=== PATIENT | male | born 1935 | race Caucasian/White ===

== ENCOUNTER 2018-04-14 16:08 | Observation (INO) ==
[2018-04-14] MEDS ORDERED: Isovue-370 500 ML INFUS..BTL IV ONE (17:14)
--- NOTE | 2018-04-14 17:19 | Emergency Department Note ---
Disposition Clinical Impression: Deep vein thrombosis of lower extremity Referrals: Barrington Anne MD [Primary Care Provider] - Forms: ED Satisfaction Letter General Adult HPI - General Chief complaint: ED Extremity Problem,Nontraumatic Stated complaint: Possible right leg DVT Source: patient Limitations: no limitations - History of Present Illness HPI Narrative: This patient was sent in today by his primary physician Dr. Anne for a DVT study of the right leg which came back positive per the radiologist with a acute thrombus seen in the right posterior tibial. It sounds like this was ordered because the doctor had noticed swelling. The patient states that his leg was not really bothering him. He does mention that he has been getting occasionally short of breath. He does not have any chest pain has not had any recent travel. Pain Scale: 2 - Related Data Allergies Allergy/AdvReac Type Severity Reaction Status Date / Time No Known Allergies Allergy Verified 04/14/18 16:09 All systems ED: reviewed and negative except as stated. Constitutional: Denies: fever Cardiovascular: Denies: chest pain Respiratory: Reports: dyspnea Gastrointestinal: Denies: abdominal pain, vomiting Past Medical History - Past Medical History Attestation: Yes The following information was validated with the patient. Medical history: Reports: GERD, hypertension Psychiatric history: Reports: no psych history - Social History Smoking Status: Former smoker Smokeless Tobacco Status: No Alcohol use: Reports: rarely Drug use: Reports: none Physical Exam - General Limitations: no limitations General appearance: alert, in no apparent distress - Head Head exam: atraumatic - Eye Eye exam: Present: PERRL - ENT ENT exam: normal oropharynx - Respiratory Respiratory exam: Present: normal lung sounds bilaterally. Absent: wheezes - Cardiovascular Cardiovascular exam: Present: regular rate - Abdominal Exam Abdominal exam: Present: Non-Tender - Extremities Exam Extremities exam: Present: pedal edema, other (+2 pitting edema bilaterally. 2/ 4 DP and ) - Neurological Exam Neurological exam: Present: alert, oriented X3 - Skin Skin exam: Present: warm, dry Course Course Narrative: This patient was sent in for what was found to be a DVT in his right leg. He did mention some occasional shortness of breath, and we have ordered a CTA of the chest to rule out pulmonary embolism. That CT is still pending at this time. The case will be checked out to the night staff. (Dr Gillespie) Vital Signs Temperature 97.5 F L 04/14/18 16:09 Pulse Rate 59 04/14/18 16:09 Respiratory Rate 18 04/14/18 16:09 Blood Pressure 182/86 04/14/18 16:09 O2 Sat by Pulse Oximetry 97 04/14/18 16:09 Temperature 97.5 F L 04/14/18 16:12 Pulse Rate 59 04/14/18 16:12 Respiratory Rate 18 04/14/18 16:12 Blood Pressure 182/86 04/14/18 16:12 O2 Sat by Pulse Oximetry 97 04/14/18 16:12 Oxygen Delivery Oxygen Delivery Room Air Medical Decision Making - Medical Records Medical records reviewed: Yes I reviewed the patient's medical records. - Lab Data Lab results reviewed: Yes I reviewed the patient's lab results. Result diagrams: 04/14/18 17:29 04/14/18 17:29 Lab Results 04/14/18 04/14/18 Range/Units 17:29 17:29 WBC 5.9 (4.3-11.1) K/mcL RBC 4.11 L (4.19-5.50) M/mcL Hgb 13.6 (12.9-16.9) g/dL Hct 39.7 (37.5-50.1) % MCV 96.6 (83.0-100.0) fL MCH 33.1 (28.0-33.3) pg MCHC 34.3 (31.6-35.5) g/dL RDW 12.7 (11.5-14.5) % Plt Count 165 (140-400) K/mcL MPV 9.8 (9.4-12.4) fL Sodium 140 (136-145) mEq/L Potassium 4.1 (3.5-5.1) mEq/L Chloride 107 (98-107) mEq/L Carbon Dioxide 28 (23-29) mEq/L BUN 11 (8-23) mg/dL Creatinine 0.98 (0.70-1.30) mg/dL Est GFR ( Amer) > 60 (> 60) Est GFR (Non-Af Amer) > 60 (> 60) BUN/Creatinine Ratio 11 (6-26) Glucose 117 H (70-105) mg/dL Calculated Osmolality 290 (280-300) Calcium 9.4 (8.6-10.3) mg/dL - Radiology Data Radiology results reviewed: Yes I reviewed the patient's radiology results. - EKG Data EKG #1 EKG attestation: Yes I reviewed and interpreted this EKG. EKG results narrative: EKG interpreted by me showing sinus rhythm at a rate of 64 with PVCs noted. QRS of 85, QTC of 392, [place] -2.
[2018-04-14 17:47] LABS: Hematocrit 39.7 % (37.5-50.1); Hemoglobin 13.6 g/dL (12.9-16.9); Mean Corpuscular HGB Conc 34.3 g/dL (31.6-35.5); Mean Corpuscular Hemoglobin 33.1 pg (28.0-33.3); Mean Corpuscular Volume 96.6 fL (83.0-100.0); Mean Platelet Volume 9.8 fL (9.4-12.4); Platelet Count 165 K/mcL (140-400); Red Blood Count 4.11 M/mcL (4.19-5.50); Red Cell Distribution Width 12.7 % (11.5-14.5)
[2018-04-14 18:06] LABS: BUN/Creatinine Ratio 11 (6-26); Blood Urea Nitrogen 11 mg/dL (8-23); Calcium 9.4 mg/dL (8.6-10.3); Carbon Dioxide 28 mEq/L (23-29); Chloride 107 mEq/L (98-107); Glucose 117 mg/dL (70-105); Osmolality,Calculated 290 (280-300); Potassium 4.1 mEq/L (3.5-5.1); Sodium 140 mEq/L (136-145); eGFR For African Americans > 60 (> 60); eGFR For Non-African Americans > 60 (> 60)
[2018-04-14] MEDS ORDERED: *HR* Enoxaparin 100 MG/ML SYRINGE SQ STA (21:22)
[2018-04-15] MEDS ORDERED: Acetaminophen 325 MG TABLET PO PRN (00:32)
[2018-04-15] MEDS ORDERED: Naloxone 0.4 MG/ML INJ IVP PRN (00:32)
--- NOTE | 2018-04-15 00:42 | Internal Med History&Physical ---
Date of Encounter: 04/15/18 Time of Encounter: 00:04 Internal Medicine - H&P: HPI Admitted From: Home Plans for Post Hospital Care: Home History of present illness: Mr. Pratt is a 83 year old male Patient presented to his primary care physician for routine exam, which was nearly all within normal limits however his doctor noted right foot swelling. He suspected possible DVT and sent the patient for ultrasound. Ultrasound confirmed a right posttibial deep vein thrombosis. He was instructed to go to the emergency room for further management. Upon arrival to the ER chest CT showed no pulmonary embolism, no acute pulmonary abnormalities but atherosclerotic disease was noted. Patient's labs were within normal limits, and vitals showed elevated blood pressure for which patient has history of hypertension. A dose of Lovenox was given, and a discussion was had with the patient regarding further management. After this discussion patient decided he would like Coumadin rather than xarelto. He is to be admitted for bridging with Coumadin and INR monitoring. Patient denies other complaints including nausea, vomiting, chest pain, shortness of breath, abdominal pain, left leg pain and headache. Past Med Surg Social Fam HX - Past Medical History Medical history: GERD, hypertension Psychiatric history: no psych history - Social History Smoking Status: Former smoker Smokeless Tobacco Status: No Alcohol use: rarely Drug use: none Internal Medicine - H&P: Meds Finasteride [Proscar] 5 mg PO DAILY 04/14/18 [History] Metoprolol [Lopressor] 50 mg PO BID 04/14/18 [History] Terazosin HCl 10 mg PO DAILY 04/14/18 [History] raNITIdine HCl [Zantac] 150 mg PO BID 04/14/18 [History] 3 Allergy/AdvReac Type Severity Reaction Status Date / Time No Known Allergies Allergy Verified 04/14/18 21:33 All Systems PM: A 10-system review of systems was performed and is negative for pertinent findings except as documented above in the HPI. - Constitutional Vitals: Temp Pulse Resp BP Pulse Ox 97.7 F 78 16 164/97 94 04/14/18 22:54 04/14/18 22:54 04/14/18 22:54 04/14/18 22:54 04/14/18 22:54 General appearance: Present: A&O X 3, pleasant, no acute distress - Head Head exam: Present: normal inspection - Eye Eye exam: Present: EOMI, normal appearance - Respiratory Respiratory exam: Present: CTAB. Absent: respiratory distress, wheezes - Cardiovascular Cardiovascular exam: Present: RRR. Absent: clicks, diastolic murmur, systolic murmur - GI/Abdominal GI/Abdominal exam: Present: normal bowel sounds, soft. Absent: tenderness - Extremities Exam Extremities exam: Present: full ROM, warm, radial pulses palpable and symmetrical. Absent: tenderness Additional comments: Patient did not have tenderness in either lower extremity, Homans sign also negative bilaterally. Mild swelling in the right foot no pitting edema noted. - Neurological Exam Neurological exam: Present: oriented X3, no focal deficits. Absent: motor sensory deficit, facial droop, speech deficit - Skin Skin exam: Present: normal color, warm. Absent: rash Internal Med - H&P Results - Labs CBC & Chem 7: 04/14/18 17:29 04/14/18 17:29 - Assessment and plan (1) Deep vein thrombosis of lower extremity Current Visit: Yes Status: Acute Assessment and plan: Patient presented to the ER after ultrasound confirmed right deep vein thrombosis. Patient has never had one in the past. Patient decided to start Coumadin, after a long discussion about his alternatives. He states that his girlfriend's family has long history with multiple medical disorders, and one of her relatives was on Xarelto and . He likes Coumadin because it can be reversed, and it can be monitored closely. On exam patient has no tenderness of the right lower extremity, mild swelling in the right foot. Homans sign negative. Lovenox loading dose given in the emergency room Start patient on Coumadin, pharmacy to dose. Monitor INR daily. Qualifiers: Affected thrombotic vein of extremity: tibial Laterality: right Qualified Code(s): I82.441 - Acute embolism and thrombosis of right tibial vein (2) History of diabetes mellitus Current Visit: Yes Status: Acute Assessment and plan: Patient states he has a history of diabetes, and was on medication for in the past. He no longer takes his medicine but does try to watch his diet. Continue to monitor glucose with meals and at night. Diabetic diet while in the hospital. (3) Hypertension Current Visit: Yes Status: Acute Assessment and plan: Patient's blood pressure was elevated in the emergency room, patient takes metoprolol 50 milligrams twice a day. Continue home meds Continue to monitor When necessary labetalol if uncontrolled on patient's home medicine. Qualifiers: Hypertension type: essential hypertension Qualified Code(s): I10 - Essential (primary) hypertension (4) BPH (benign prostatic hyperplasia) Current Visit: Yes Status: Acute Assessment and plan: Chronic, patient takes finasteride and terazosin. Continue home meds. Qualifiers: Qualified Code(s): N40.0 - Benign prostatic hyperplasia without lower urinary tract symptoms - Time Spent With Patient Total time spent is greater than 50% in coordination of care (as documented) at patient's floor/unit and/or counseling patient: Greater than 35 minutes
[2018-04-15] MEDS ORDERED: Warfarin perPT PO PRN (01:07)
[2018-04-15] MEDS ORDERED: *HR* Warfarin 5 MG TABLET PO STA (01:11)
[2018-04-15 02:02] LABS: Hematocrit 41.3 % (37.5-50.1); Hemoglobin 13.9 g/dL (12.9-16.9); Mean Corpuscular HGB Conc 33.7 g/dL (31.6-35.5); Mean Corpuscular Hemoglobin 32.8 pg (28.0-33.3); Mean Corpuscular Volume 97.4 fL (83.0-100.0); Platelet Count 159 K/mcL (140-400); Red Blood Count 4.24 M/mcL (4.19-5.50); Red Cell Distribution Width 12.7 % (11.5-14.5)
[2018-04-15 02:19] LABS: BUN/Creatinine Ratio 11 (6-26); Blood Urea Nitrogen 12 mg/dL (8-23); Calcium 9.3 mg/dL (8.6-10.3); Carbon Dioxide 29 mEq/L (23-29); Chloride 104 mEq/L (98-107); Glucose 227 mg/dL (70-105); Osmolality,Calculated 293 (280-300); Potassium 3.9 mEq/L (3.5-5.1); Sodium 138 mEq/L (136-145); eGFR For African Americans > 60 (> 60); eGFR For Non-African Americans > 60 (> 60)
[2018-04-15 02:22] LABS: INR 1.2; Prothrombin Time 13.5 Seconds (9.4-12.1)
--- NOTE | 2018-04-15 05:04 | Emergency Department Note ---
Disposition Clinical Impression: Deep vein thrombosis of lower extremity Qualifiers: Affected thrombotic vein of extremity: tibial Laterality: right Qualified Code( s): I82.441 - Disposition: Admitted As Inpatient General Adult [facility] - General Chief complaint: ED Extremity Problem,Nontraumatic Stated complaint: Possible right leg DVT Time Seen by Provider: 04/14/18 19:16 Source: patient Limitations: no limitations Nursing Notes Reviewed: Yes Vital Signs Reviewed: Yes - History of Present Illness Pain Scale: 0 - Related Data Home Medications Medication Instructions Recorded Confirmed Finasteride [Proscar] 5 mg PO DAILY 04/14/18 04/14/18 Metoprolol [Lopressor] 50 mg PO BID 04/14/18 04/14/18 Terazosin HCl 10 mg PO DAILY 04/14/18 04/14/18 raNITIdine HCl [Zantac] 150 mg PO BID 04/14/18 04/14/18 Allergies Allergy/AdvReac Type Severity Reaction Status Date / Time No Known Allergies Allergy Verified 04/14/18 21:33 Constitutional: Denies: fever Cardiovascular: Denies: chest pain Respiratory: Reports: dyspnea Gastrointestinal: Denies: abdominal pain, vomiting Past Medical History - Past Medical History Medical history: Reports: GERD, hypertension Psychiatric history: Reports: no psych history - Social History Smoking Status: Former smoker Smokeless Tobacco Status: No Alcohol use: Reports: rarely Drug use: Reports: none Physical Exam - General Limitations: no limitations General appearance: alert, in no apparent distress Course Vital Signs Temperature 97.5 F L 04/14/18 16:09 Pulse Rate 59 04/14/18 16:09 Respiratory Rate 18 04/14/18 16:09 Blood Pressure 182/86 04/14/18 16:09 O2 Sat by Pulse Oximetry 97 04/14/18 16:09 Temperature 97.7 F 04/15/18 02:35 Pulse Rate 81 04/15/18 02:35 Respiratory Rate 16 04/15/18 02:35 Blood Pressure 143/82 04/15/18 02:35 O2 Sat by Pulse Oximetry 95 04/15/18 02:35 Oxygen Delivery Oxygen Delivery Room Air Medical Decision Making - Lab Data Result diagrams: 04/15/18 01:49 04/15/18 01:49 Lab Results 04/14/18 04/14/18 Range/Units 17:29 17:29 WBC 5.9 (4.3-11.1) K/mcL RBC 4.11 L (4.19-5.50) M/mcL Hgb 13.6 (12.9-16.9) g/dL Hct 39.7 (37.5-50.1) % MCV 96.6 (83.0-100.0) fL MCH 33.1 (28.0-33.3) pg MCHC 34.3 (31.6-35.5) g/dL RDW 12.7 (11.5-14.5) % Plt Count 165 (140-400) K/mcL MPV 9.8 (9.4-12.4) fL Sodium 140 (136-145) mEq/L Potassium 4.1 (3.5-5.1) mEq/L Chloride 107 (98-107) mEq/L Carbon Dioxide 28 (23-29) mEq/L BUN 11 (8-23) mg/dL Creatinine 0.98 (0.70-1.30) mg/dL Est GFR ( Amer) > 60 (> 60) Est GFR (Non-Af Amer) > 60 (> 60) BUN/Creatinine Ratio 11 (6-26) Glucose 117 H (70-105) mg/dL Calculated Osmolality 290 (280-300) Calcium 9.4 (8.6-10.3) mg/dL Attestation Statement - Attestation Attestation: Findings consistent with acute DVT. Attempted discharge with the relative however patient was not amenable to this form of any coagulation after discussion of risks versus benefits. Patient will be admitted for bridging of Lovenox to Coumadin.
[2018-04-15] MEDS ORDERED: *HR* Enoxaparin 100 MG/ML SYRINGE SQ SCH (08:47)
[2018-04-15] MEDS ORDERED: Famotidine 20 MG TABLET PO SCH (09:00)
[2018-04-15] MEDS ORDERED: Finasteride 5 MG TABLET PO SCH ×2 (09:00→21:00)
[2018-04-15 11:32] VITALS: BP 163/89
--- NOTE | 2018-04-15 12:23 | Electrocardiograph Report ---
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
--- NOTE | 2018-04-15 13:25 | Discharge Summary ---
- NOTES TO OUTPATIENT PROVIDER Notes to Outpatient Provider: Recommend follow-up within one week Date of Encounter: 04/15/18 Time of Encounter: 13:23 - Discharge Diagnosis (1) Deep vein thrombosis of lower extremity Priority: Primary Status: Acute Qualifiers: Affected thrombotic vein of extremity: tibial Laterality: right Qualified Code(s): I82.441 - Acute embolism and thrombosis of right tibial vein (2) BPH (benign prostatic hyperplasia) Priority: Primary Status: Acute Qualifiers: Lower urinary tract symptom presence: symptoms absent Qualified Code(s): N40.0 - Benign prostatic hyperplasia without lower urinary tract symptoms (3) History of diabetes mellitus Priority: Primary Status: Acute (4) Hypertension Priority: Primary Status: Acute Qualifiers: Hypertension type: essential hypertension Qualified Code(s): I10 - Essential (primary) hypertension Hospital course: Mr. Pratt is a 83 year old male with PMH BPH, hypertension and GERD presented to [facility] on 04/14/2018 from his PCPs office with an acute right lower extremity DVT. He was placed in observation status for further workup and treatment. Bilateral venous Doppler from PCP office showed acute thrombosis to right posterior tibial vein, normal left lower extremity Valentino. He underwent a CTA that was negative for pulmonary embolism. He does have history of prostate cancer and with his advanced age DVT appears to be provoked. Discussed anticoagulation options with him at length and patient and family both decided on warfarin with Lovenox bridge. Patient's said she has administered a cutaneous injections before and she she will be the one to administer Lovenox to patient at home. He was discharged home on Coumadin 3 mg daily with follow-up in 2 days at the Coumadin clinic. Educated at length regarding side effects of Coumadin; patient and both verbalize understanding that he will be at a higher bleeding risk. Discharge discussed with: patient (Seen and examined at bedside. Patient is new to me, information obtained from chart review and patient report. Says he feels back to baseline and wanted to go home today. Discussed anticoagulation with him and at length and both prefer to go with Coumadin due to option and reversal agent with vitamin K. will be administering Lovenox injections at home until INR is between 2-3. He will follow-up with the Coumadin clinic in 2 days.) - Time Spent with Patient Total time spent providing and/or coordinating discharge services: - Discharge Medications Prescriptions: Enoxaparin [Lovenox] 90 mg SQ Q12HR #28 syringe Warfarin [Coumadin] 3 mg PO 1800 #3 tablet Home Medications: Finasteride [Proscar] 5 mg PO DAILY 04/14/18 [History] Metoprolol [Lopressor] 50 mg PO BID 04/14/18 [History] Terazosin HCl 10 mg PO DAILY 04/14/18 [History] raNITIdine HCl [Zantac] 150 mg PO BID 04/14/18 [History] Enoxaparin [Lovenox] 90 mg SQ Q12HR #28 syringe 04/15/18 [Rx] Warfarin [Coumadin] 3 mg PO 1800 #3 tablet 04/15/18 [Rx] Allergies/Adverse Reactions: 3 Allergy/AdvReac Type Severity Reaction Status Date / Time No Known Allergies Allergy Verified 04/14/18 21:33 Date of admission: 04/14/18 21:45 Primary care physician: Barrington Anne MD Discharging clinician: Isabelle Davalos Anticipated date of discharge: 04/15/18 - Constitutional Vitals: Temp Pulse Resp BP Pulse Ox 96.9 F L 72 16 163/89 96 04/15/18 11:32 04/15/18 11:32 04/15/18 11:32 04/15/18 11:32 04/15/18 11:32 General appearance: Present: A&O X 3, pleasant, no acute distress - Head Head exam: Present: atraumatic, normocephalic - Eye Eye exam: Present: PERRL, conjuntiva pink, sclera anicteric Pupils: Present: PERRL - Neck Neck exam general surgery: Present: supple, trachea midline. Absent: lymphadenopathy - Respiratory Respiratory exam: Present: CTAB. Absent: accessory muscle use, rales, rhonchi, wheezes - Cardiovascular Cardiovascular exam: Present: RRR, +S1, +S2. Absent: diastolic murmur, gallop, rubs, systolic murmur - GI/Abdominal GI/Abdominal exam: Present: normal bowel sounds, soft, no peritoneal signs. Absent: distended, tenderness - Extremities Exam Extremities exam: Present: warm, radial pulses palpable and symmetrical. Absent : calf tenderness, cyanotic, pedal edema - Neurological Exam Neurological exam: Present: CN II-XII intact, oriented X3, no focal deficits. Absent: pronater drift, facial droop, speech deficit - Skin Skin exam: Present: dry, intact - Patient Status Disposition: Home, Self-Care Condition: Good Functional capacity at discharge: independent ambulation Overall status at discharge: patient is back to baseline - Discharge Instructions Instructions: Warfarin (By mouth), Enoxaparin (Injection), Deep Venous Thrombosis (DC) Follow Up With: Barrington Anne MD [Primary Care Provider] - (Please call for follow-up within one week) Additional Instructions: You have not appointment at the anticoagulation clinic at [facility] on 04/17/2018 at 2 PM. He is follow-up at that time for INR check and Coumadin dosing. You need to continue taking Lovenox twice a day and her INR is between 2-3 - Diet and Activity Diet: advance to your usual diet
[2018-04-15 14:00] LABS: INR 1.3; Prothrombin Time 13.6 Seconds (9.4-12.1)
[2018-04-15] MEDS ORDERED: *HR* Warfarin 3 MG TABLET PO ONE (18:00)
== END 2018-04-15 16:28 | disposition home or self-care (01) ==
LOC: 3BNU 16:08 → EMEROO 16:08 → 3BNU 22:13
PROVIDERS: ADMIT Family Medicine; ATTEND Family Medicine

== ENCOUNTER 2018-08-15 10:24 | Inpatient (IN) ==
[2018-08-15] MEDS ORDERED: *HR* Heparin 5,000 UNIT/ML VIAL ONE (10:30)
[2018-08-15] MEDS ORDERED: *HR* Ticagrelor 90 MG TABLET ONE (10:30)
[2018-08-15] MEDS: Nitroglycerin 0.4 MG TAB.SUBL SL PRN ×2 (10:33→10:39)
--- NOTE | 2018-08-15 10:37 | Emergency Department Note ---
Disposition Clinical Impression: STEMI (ST elevation myocardial infarction) Qualifiers: Involved coronary artery: unspecified coronary artery Qualified Code(s): I21.3 - ST elevation (STEMI) myocardial infarction of unspecified site Disposition: Admitted As Inpatient Condition: Critical Chest Pain HPI - General Chief Complaint: ED Chest Pain Stated Complaint: stemi Time Seen by Provider: 08/15/18 10:26 Source: patient, EMS Limitations: no limitations Vital Signs Reviewed: Yes Nursing Notes Reviewed: Yes - History of Present Illness HPI Narrative: Patient is an 83-year-old male with history of hypertension, DVT, BPH him presents the emergency department with chest pain which started suddenly this morning at around 6 AM. Patient initially called EMS but declined transport but the pain continued therefore he contacted them again and was brought to the hospital. In route the patient's EKG was sent to the emergency department showing anterior ST elevation. He notes the pain is constant pressure in the center of his chest which radiates into bilateral shoulders. Nothing has alleviated his pain. Nothing improves his pain. The patient denies any shortness of breath, diaphoresis, nausea, vomiting. He has never had a heart attack before. Denies use of any Viagra or other medications for rectal dysfunction. Severity scale (1-10): 8 - Related Data Home Medications Medication Instructions Recorded Confirmed Finasteride [Proscar] 5 mg PO DAILY 04/14/18 04/14/18 Metoprolol [Lopressor] 50 mg PO BID 04/14/18 04/14/18 Terazosin HCl 10 mg PO DAILY 04/14/18 04/14/18 raNITIdine HCl [Zantac] 150 mg PO BID 04/14/18 04/14/18 Warfarin Sodium 3 mg PO MO 08/15/18 08/15/18 Warfarin [Coumadin] 6 mg PO [id number] 08/15/18 08/15/18 Allergies Allergy/AdvReac Type Severity Reaction Status Date / Time No Known Allergies Allergy Verified 04/14/18 21:33 All systems ED: reviewed and negative except as stated. Review of Systems: As Per HPI Chest Pain PMH - Past Medical History Medical history: Reports: DVT, GERD, hypertension Psychiatric history: Reports: no psych history - Social History Smoking Status: Former smoker Alcohol use: Reports: rarely Drug use: Reports: none Physical Exam Generally well-appearing male, appears his stated age. Appears slightly pale but nondiaphoretic. Able to speak in full sentences. Alert and oriented 3. - General Limitations: no limitations General appearance: alert, in no apparent distress - Head Head exam: atraumatic, normocephalic - ENT ENT exam: normal exam - Neck Neck exam: Present: normal inspection, trachea midline - Chest Chest inspection: Present: normal inspection, symmetric chest wall rise. Absent: tenderness - Respiratory Respiratory exam: Present: normal lung sounds bilaterally. Absent: respiratory distress, wheezes - Cardiovascular Cardiovascular exam: Present: regular rate, normal rhythm, normal heart sounds. Absent: irregular rhythm, rubs, gallop - Abdominal Exam Abdominal exam: Present: soft, Non-Tender Course - Reevaluation(s) Reevaluation #1: Discussed case with Dr. Gates, glove cuffer who recommends loading dose of heparin 4000 declines brilinta. Time: 10:37 Reevaluation #2: Patient continues with chest pain, repeat nitro given. Time: 10:42 Reevaluation #3: [facility] here to take patient. Patient is hemodynamically stable. Time: 10:53 Vital Signs Temperature 97.5 F L 08/15/18 10:26 Pulse Rate 83 08/15/18 10:26 Respiratory Rate 12 08/15/18 10:26 Blood Pressure 141/91 08/15/18 10:26 O2 Sat by Pulse Oximetry 96 08/15/18 10:26 Temperature 97.5 F L 08/15/18 10:26 Pulse Rate 65 08/15/18 10:53 Respiratory Rate 20 08/15/18 10:53 Blood Pressure 120/77 08/15/18 10:54 O2 Sat by Pulse Oximetry 97 08/15/18 10:53 Oxygen Delivery Oxygen Delivery Nasal Cannula Chest Pain - [facility] Narrative Medical decision making narrative: EKG in route shows ST elevation in leads V2 V3 V4 and V5. Upon arrival patient is hemodynamically stable, alert and oriented 3. He is not diaphoretic but actively complaining of chest pain in the center of his chest. STEMI protocol started. Patient was given 325mg aspirin in route. Repeat EKGs shows acute ST elevation in V1, V2, V3, V4. Nitroglycerin given 2 for pain relief without improvement. Blood pressures monitored closely. 50 mcg fentanyl given for pain relief. Loading dose per cardiology recommendations of 4000 units heparin started. Patient taken to [facility] for acute intervention. Patient transferred to [facility] in stable condition. All questions answered. - Medical Records Medical records reviewed: Yes I reviewed the patient's medical records. - Lab Data Lab results reviewed: Yes I reviewed the patient's lab results. Result diagrams: 08/15/18 10:08/15/18 10: Lab Results 08/15/18 08/15/18 08/15/18 Range/Units 10: 10: 10: WBC 8.2 (4.3-11.1) K/mcL RBC 4.31 (4.19-5.50) M/mcL Hgb 14.0 (12.9-16.9) g/dL Hct 41.2 (37.5-50.1) % MCV 95.6 (83.0-100.0) fL MCH 32.5 (28.0-33.3) pg MCHC 34.0 (31.6-35.5) g/dL RDW 12.3 (11.5-14.5) % Plt Count 153 (140-400) K/mcL MPV 9.7 (9.4-12.4) fL Immature Gran % 0.2 (0-4) % Seg Neutrophils % 82.2 % Lymphocytes % 12.6 % Monocytes % 4.4 % Eosinophils % 0.5 % Basophils % 0.1 % Neutrophils # 6.7 (1.6-8.9) K/mcL Lymphocytes # 1.0 (0.6-4.6) K/mcL Monocytes # 0.4 (0.0-1.3) K/mcL Eosinophils # 0.0 (0.0-0.6) K/mcL Basophils # 0.0 (0.0-0.2) K/mcL PT 25.8 H (9.4-12.1) Seconds INR 2.3 APTT 39.0 H (26.0-36.0) Seconds Sodium 134 L (136-145) mEq/L Potassium 4.1 (3.5-5.1) mEq/L Chloride 102 (98-107) mEq/L Carbon Dioxide 23 (23-29) mEq/L BUN 12 (8-23) mg/dL Creatinine 0.84 (0.70-1.30) mg/dL Est GFR ( Amer) > 60 (> 60) Est GFR (Non-Af Amer) > 60 (> 60) BUN/Creatinine Ratio 14 (6-26) Glucose 196 H (70-105) mg/dL Calculated Osmolality 283 (280-300) Calcium 9.6 (8.6-10.3) mg/dL Magnesium 1.8 (1.6-2.6) mg/dL Troponin I 0.49 H* (< 0.04) ng/mL - Radiology Data Radiology results reviewed: Yes I reviewed the patient's radiology results. - EKG Data EKG attestation: Yes I reviewed and interpreted this EKG. EKG results narrative: Sinus rate of 66, normal axis. MO 231, QRS 92, QT 393, QTC 412. ST elevations in V2, V3, V4 with T-wave wave inversions in 3 and aVR. Heart Score - Score History: Highly Suspicious EKG: Significant ST-Depression Age: Greater than 65 Risk Factors: 1-2 risk factors Troponin: Greater than 3x normal limit HEART Score Total: 9
[2018-08-15] MEDS ORDERED: 0.9 % Sodium Chloride 1,000 ML ONE ×2 (10:39→11:01)
[2018-08-15] MEDS ORDERED: Nitroglycerin 1,000 MCG/10 ML VIAL IV ONE (10:39)
[2018-08-15] MEDS ORDERED: *HR* Heparin 10,000 UNIT/10 ML VIAL ONE (10:39)
[2018-08-15] MEDS ORDERED: Heparin 1,000 UNITS/500 mL 500 ML ONE (10:39)
[2018-08-15] MEDS ORDERED: ISOVUE-370 200 ML INFUS..BTL ONE ×2 (10:39→11:23)
[2018-08-15] MEDS ORDERED: *HR* Heparin 5,000 UNIT/ML VIAL IVP ONE (10:40)
[2018-08-15] MEDS ORDERED: *HR* Heparin 5,000 UNIT/ML VIAL IVP PRN ×2 (10:40)
[2018-08-15] MEDS ORDERED: *HR* FentaNYL (PF) 100 MCG/2 ML VIAL IVP ONE (10:43)
[2018-08-15] MEDS ORDERED: Verapamil 5 MG/2 ML VIAL ONE (10:44)
[2018-08-15] MEDS ORDERED: Heparin 25,000 UNIT/500 ML D5W 25,000 UNIT/500 ML BAG IVC SCH (10:45)
[2018-08-15 10:46] LABS: Basophils % 0.1 %; Eosinophils % 0.5 %; Hematocrit 41.2 % (37.5-50.1); Immature Granulocytes % 0.2 % (0-4); Lymphocytes % 12.6 %; Mean Corpuscular Hemoglobin 32.5 pg (28.0-33.3); Mean Corpuscular Volume 95.6 fL (83.0-100.0); Mean Platelet Volume 9.7 fL (9.4-12.4); Monocytes # 0.4 K/mcL (0.0-1.3); Monocytes % 4.4 %; Neutrophils # 6.7 K/mcL (1.6-8.9); Platelet Count 153 K/mcL (140-400); Red Blood Count 4.31 M/mcL (4.19-5.50); Red Cell Distribution Width 12.3 % (11.5-14.5); Segmented Neutrophils % 82.2 %
[2018-08-15 10:54] LABS: INR 2.3; Prothrombin Time 25.8 Seconds (9.4-12.1)
--- NOTE | 2018-08-15 11:00 | Emergency Department Note ---
Disposition Clinical Impression: STEMI (ST elevation myocardial infarction) Qualifiers: Involved coronary artery: LAD coronary artery Qualified Code(s): I21.02 - ST elevation (STEMI) myocardial infarction involving left anterior descending coronary artery Disposition: Admitted As Inpatient Forms: ED Satisfaction Letter General Adult HPI - General Chief complaint: ED Chest Pain Stated complaint: stemi Time Seen by Provider: 08/15/18 10:26 Source: patient, EMS Limitations: no limitations - History of Present Illness HPI Narrative: Attestation note: Patient was seen with the emergency medicine resident/nurse practitioner/physician drug safety assistant/transitional resident/medical student: Dr. KODAK PATRICIO I have personally performed a face to face evaluation on this patient. I have reviewed and agree with history and physical examination patient management and disposition. Briefly the salient points of the case are as follows: 83-year-old male, by EMS for chest pain. Patient is no prior history of heart attack or coronary artery disease. No prior catheter. EKG from feel transmitted highly suggestive for anterior ST elevation SD. STEMI alert was called. We confirmed with the neurological surgeon Dr. Gates. Patient arrived. History was that he had chest pain earlier EMS was called pain resolved she declined transportation the pain came back he did not EKG seen a STEMI and transported him on aspirin. 3 EMS. Patient is on Coumadin. We discussed with Dr. Gates who recommended heparin and Mylanta. We have provided 35 minutes of critical care services to this patient. Cath team is here, patient is being prepped and taken to [facility] STEMI protocol orders have been followed. Pain Scale: 8 - Related Data Home Medications Medication Instructions Recorded Confirmed Finasteride [Proscar] 5 mg PO DAILY 04/14/18 04/14/18 Metoprolol [Lopressor] 50 mg PO BID 04/14/18 04/14/18 Terazosin HCl 10 mg PO DAILY 04/14/18 04/14/18 raNITIdine HCl [Zantac] 150 mg PO BID 04/14/18 04/14/18 Previous Rx's Medication Instructions Recorded Enoxaparin [Lovenox] 90 mg SQ Q12HR #28 syringe 04/15/18 Warfarin [Coumadin] 3 mg PO 1800 #3 tablet 04/15/18 Allergies Allergy/AdvReac Type Severity Reaction Status Date / Time No Known Allergies Allergy Verified 04/14/18 21:33 Past Medical History - Past Medical History Medical history: Reports: DVT, GERD, hypertension Psychiatric history: Reports: no psych history - Social History Smoking Status: Former smoker Smokeless Tobacco Status: No Alcohol use: Reports: rarely Drug use: Reports: none Physical Exam - General Limitations: no limitations General appearance: alert, in no apparent distress Course Vital Signs Temperature 97.5 F L 08/15/18 10:26 Pulse Rate 83 08/15/18 10:26 Respiratory Rate 12 08/15/18 10:26 Blood Pressure 141/91 08/15/18 10:26 O2 Sat by Pulse Oximetry 96 08/15/18 10:26 Temperature 97.5 F L 08/15/18 10:26 Pulse Rate 65 08/15/18 10:53 Respiratory Rate 20 08/15/18 10:53 Blood Pressure 120/77 08/15/18 10:54 O2 Sat by Pulse Oximetry 97 08/15/18 10:53 Oxygen Delivery Oxygen Delivery Nasal Cannula Medical Decision Making - Lab Data Result diagrams: 08/15/18 10:27 Lab Results 08/15/18 08/15/18 Range/Units 10:27 10:27 WBC 8.2 (4.3-11.1) K/mcL RBC 4.31 (4.19-5.50) M/mcL Hgb 14.0 (12.9-16.9) g/dL Hct 41.2 (37.5-50.1) % MCV 95.6 (83.0-100.0) fL MCH 32.5 (28.0-33.3) pg MCHC 34.0 (31.6-35.5) g/dL RDW 12.3 (11.5-14.5) % Plt Count 153 (140-400) K/mcL MPV 9.7 (9.4-12.4) fL Immature Gran % 0.2 (0-4) % Seg Neutrophils % 82.2 % Lymphocytes % 12.6 % Monocytes % 4.4 % Eosinophils % 0.5 % Basophils % 0.1 % Neutrophils # 6.7 (1.6-8.9) K/mcL Lymphocytes # 1.0 (0.6-4.6) K/mcL Monocytes # 0.4 (0.0-1.3) K/mcL Eosinophils # 0.0 (0.0-0.6) K/mcL Basophils # 0.0 (0.0-0.2) K/mcL PT 25.8 H (9.4-12.1) Seconds INR 2.3
[2018-08-15] MEDS ORDERED: *HR* FentaNYL (PF) 100 MCG/2 ML VIAL ONE (11:06)
[2018-08-15] MEDS ORDERED: *HR* Midazolam HCl 2 MG/2 ML VIAL ONE (11:06)
[2018-08-15 11:07] LABS: BUN/Creatinine Ratio 14 (6-26); Blood Urea Nitrogen 12 mg/dL (8-23); Calcium 9.6 mg/dL (8.6-10.3); Carbon Dioxide 23 mEq/L (23-29); Chloride 102 mEq/L (98-107); Glucose 196 mg/dL (70-105); Magnesium 1.8 mg/dL (1.6-2.6); Osmolality,Calculated 283 (280-300); Potassium 4.1 mEq/L (3.5-5.1); Sodium 134 mEq/L (136-145); eGFR For Non-African Americans > 60 (> 60)
[2018-08-15] MEDS ORDERED: Tirofiban 12.5 MG/250ML 12.5 MG/250 ML BAG ONE (11:11)
[2018-08-15 11:15] LABS: Troponin I 0.49 ng/mL (< 0.04)
[2018-08-15] MEDS ORDERED: Tirofiban 12.5 MG/250ML 12.5 MG/250 ML BAG IVC SCH (12:45)
--- NOTE | 2018-08-15 12:45 | Invasive Diagnostic Lab Proc ---
Name: Giuseppe Pratt Date of Study: 08/15/2018 Date: 1935 Ht: 74.0in Medical Record#: [id number] Age: 83 Wt: 218.26lb Gender: Male BSA: 2.26 Order #: [id number] BMI: 28.01 Physicians Procedure Physician: Camacho Gates MD, FACC Referring MD: Referring MD: Staff Name Position Time In DadaVinay RN Monitor 11:03 AM Desmond Acosta RN [place] 11:03 AM Lawrence Weiss RT (R) Scrub 11:03 AM Indications Indication STEMI Procedures Performed Procedure PRQ CARD REVASC MO 1 VSL L HRT ARTERY/VENTRICLE ANGIO Pre-Procedure Checklist Informed consent is complete signed and on chart. H&P is on chart. ID band is on and ID verified with patient. Patient NPO for procedure The procedure was described for the patient and questions were answered. ECG is on chart. Plan of Care Patient will tolerate the procedure without complications. Adequate level of comfort will be maintained. Hemodynamics will remain stable Patient will recover from procedure without complications. Respiratory function will be maintained. Cardiac rhythm will remain stable. Patient temperature will be maintained. Patient and/or family have verbalized understanding of the procedure. Patient Education Chief Complaint/Reason for Test: Cardiac Cath Developmental Category: Geriatric (65+ years) Developmentally Appropriate for Age: Yes Learning Barriers: None Education Needs: Procedure Education Method: Verbal Information Taught: Cardiac Cath Educational Evaluation: Able to repeat information Intravenous Access Time IV Size Location DC'd Fluid/Drip Rate Units RN 10:55 AM Started with 18g needle 1 1/4" Lt Wrist 0.9NaCl 25 ml/hr Allergies No Known Allergies Vital Signs Time BP (mmHg) HR (bpm) O2 Sat. RR (bpm) LOC 11:05 AM / % 5 = Fully awake and oriented or at pre-proc level 11:05 AM / % 4 = Oriented but drowsy 11:20 AM / % 4 = Oriented but drowsy 11:35 AM / % 4 = Oriented but drowsy 11:50 AM / % 4 = Oriented but drowsy 11:05 AM 124 / 78 73 % 23 11:10 AM 111 / 68 74 % 18 11:15 AM 108 / 67 71 % 11 11:20 AM 104 / 62 67 % 11 11:25 AM 100 / 49 67 % 14 11:30 AM 97 / 64 72 % 17 11:35 AM 109 / 62 71 % 19 11:40 AM 108 / 70 71 % 37 11:45 AM 114 / 63 72 % 17 11:50 AM 110 / 69 82 % 18 11:55 AM 116 / 63 74 % 13 12:00 PM 116 / 59 65 % 11 12:09 PM / % 4 = Oriented but drowsy Procedural Medications Time Medication Dose Units Method Given By 11:05 AM Oxygen 2 L/min nasal cannula Desmond Acosta RN 11:07 AM Heparin 1000 units Nitroglycerin 200 mcg Verapamil 2.5 mg Intraarterial Camacho Gates MD, FACC 11:07 AM Lidocaine 2% 0.5 ml Subcutaneous Camacho Gates MD, FACC 11:13 AM Aggrastat Bolus: 50 ml Intravenous Desmond Acosta RN 11:13 AM Aggrastat 12.5mg/250ml 18 ml/hr Intravenous Desmond Acosta RN 11:16 AM Nitroglycerin 50 mcg Intracoronary Camacho Gates MD 11:05 AM Versed 1 mg Intravenous Desmond Acosta RN 11:05 AM Fentanyl 50 mcg Intravenous Desmond Acosta RN 12:02 PM Plavix 600 mg Orally Demsond Acosta RN ASA Classification: Emergent Procedure: ASA score is assumed Diana Score Preprocedure Postprocedure Activity 2- Moves 4 extremities sustained head lift Activity 2- Moves 4 extremities sustained head lift Circulation 2- SBP +/= 20 points of pre-anesthetic level Circulation 2- SBP +/= 20 points of pre-anesthetic level Consciousness 2- Awake and alert oriented x 3 Consciousness 2- Awake and alert oriented x 3 O2 Saturation 2- Able to maintain O2 satruation of 92% on room air O2 Saturation 2- Able to maintain O2 satruation of 92% on room air Respiratory 2- Able to deep breathe and cough well Respiratory 2- Able to deep breathe and cough well Total Score 10 Total Score 10 Contrast Agent: Isovue Diagnostic Contrast: 219 ml Total Contrast: 219 ml Fluoro Dose: 16745 mGy Activated Clotting Time Time Seconds to Clot 11:55 AM 400 Procedure Log Time Note Enter By 10:53 AM Patient charges- Angio tray pack, Navilyst 3mm J, Pulse Oximetry and ACIST tubing and transducer [place] 11:01 AM IV removed from right wrist because it was in the way of the cath site [place] 11:03 AM Physician arrived 11:03 [place] 11:03 AM Pt arrived to labeler 2 at 11:03 [place] 11:03 AM Vinay Garland RN Position: Monitor Time in: : [place] 11:03 AM Desmond Acosta RN Position: [place] Time in: 11: [place] 11:03 AM Lawrence Weiss RT (R) Position: Scrub Time in: 11:03 [place] 11:04 AM Vitals capture started with the following parameters, Patient=Adult, Interval=5 min, Initial Vjhgurdy=484 mmHg, Deflation Rate=5 mmHg, Cuff placed on Right Arm 11:04 AM Hair removed from procedure site in emergency department using clippers. Right wrist/right groin prepped with Chloraprep by Vinay Garland RN, then patient was draped. Skin intact. [place] 11: AM Esau and luiz completed [place] 11:04 AM Sign in performed according to hospital policy. Informed consent was obtained. [place] 11:04 AM Procedure start :04 [place] 11:05 AM Time: 11:05 Patient comfortable and pain free: Yes [place] 11:05 AM Time: 11:05 Fentanyl 50 mcg Intravenous Given by Desmond Acosta RN [place] 11:05 AM HR=73 bpm, HPLC=037/78 mmhg, Resp=23 B/min 11:05 AM Time: 11:05LOC: 5 = Fully awake and oriented or at pre-proc level [place] 11:05 AM Time: 11:05 Oxygen on at 2 L/min per nasal cannula by Desmond Acosta RN [place] 11:05 AM CathStat 11:05 AM Time: 11:05 Versed 1 mg Intravenous Given by Desmond Acosta RN [place] 11:06 AM Time out was performed according to hospital policy. Conscious sedation and anesthesia was achieved (see medication log with in this report above) [place] 11:06 AM Time: 11:06 0.5 ml Lidocaine 2% to right radial Subcutaneous Given by Camacho Gates MD, FACC [place] 11:07 AM Access obtained by percutaneous puncture. 6Fr 11cm Terumo Glidesheath sheath placed in right Radial artery. [id number] [place] 11:08 AM Time: 11:08 Patient given 1000 units Heparin, 200 mcg Nitroglycerin, and 2.5 mg Verapamil Intraarterial by Camacho Gates MD, FACC. This is given to reduce risk of vessel spasm and thrombosis. [place] 11:08 AM Recorded Pressure: Ao, HR=71, Condition=Condition 1 (Aorta) Ao 102/65/84 11:10 AM HR=74 bpm, DDWS=713/68 mmhg, Resp=18 B/min 11:10 AM 5Fr TIG catheter inserted over the wire [facility] [place] 11:10 AM Catheter removed [place] 11:10 AM Inflation device was opened. [place] 11:10 AM 6Fr RBL 3.5 Convey guide catheter was used to cannulate the PCI vessel successfully. reused? No [place] 11:11 AM Recorded Pressure: Ao, HR=72, Condition=Condition 1 (Aorta) Ao 94/56/74 11:11 AM LCA angiography performed in multiple views. [place] 11:[address] [place] 190cm guide wire across target lesion- successful. reused? No [place] 11:13 AM Time: 11:13 Aggrastat Bolus: 50 ml Intravenous Given by Desmond Acosta RN Muñoz pump [place] 11:13 AM Time: 11:13 Aggrastat 12.5mg/250ml 18 ml/hr Intravenous Given by Desmond Acosta RN Muñoz pump [place] 11:14 AM 2.25 mm x 20 mm Emerge Monorail balloon across target lesion- successful. reused? No [place] 11:15 AM HR=71 bpm, GAQO=340/67 mmhg, Resp=11 B/min, Comment=nsr 11:15 AM Balloon inflated @ 10 bishop for 10 seconds [place] 11:16 AM Recorded Pressure: Ao, HR=71, Condition=Condition 1 (Aorta) Ao 98/63/79 11:16 AM Time: 11:16 Nitroglycerin 50 mcg Intracoronary Given by Camacho Gates MD [place] 11:17 AM PCI Status Emergency [place] 11:17 AM PCI lesion in Mid LAD. Pre Stenosis: 100 Pre MATHEW Flow: 0: No Flow/No perfusion c[place] 11:17 AM Proximal Left Anterior Descending Coronary Artery with 70% stenosis. If graft is supplying this territory, 0 % stenosis. [place] 11:18 AM Lesion found in Proximal LAD. Pre Stenosis: 70 Pre MATHEW Flow: 2: Partial Flow/Perfusion (> 1 but < 3) c[place] 11:18 AM Balloon catheter removed intact. [place] 11:18 AM 3.5mm x 20mm Synergy drug-eluting stent across target lesion- successful Lot #[id number] [place] 11:19 AM Lesion found in Mid Circumflex. Pre Stenosis: 30 Pre MATHEW Flow: [place] 11:20 AM Time: 11:05 Patient comfortable and pain free: Yes [place] 11:20 AM HR=67 bpm, ZHTW=707/62 mmhg, Resp=11 B/min 11:20 AM Time: 11:05LOC: 4 = Oriented but drowsy [place] 11:20 AM Stent deployed @ 14 bishpo for 20 seconds c[place] 11:21 AM Stent delivery system removed intact. [place] 11:23 AM 3.50mm x 16mm Synergy drug-eluting stent across target lesion- successful Lot #[id number] [place] 11:25 AM HR=67 bpm, HJQD=945/49 mmhg, Resp=14 B/min 11:25 AM Stent deployed @ 16 bishop for 18 seconds c[place] 11:26 AM Recorded Pressure: Ao, HR=70, Condition=Condition 1 (Aorta) Ao 101/59/78 11:26 AM Stent delivery system removed intact. [place] 11:27 AM Guide catheter removed intact. [place] 11:27 AM Guide wire removed intact. [place] 11:28 AM 5Fr FR 4 catheter inserted over the wire DNC c[place] 11:30 AM HR=72 bpm, NIBP=97/64 mmhg, Resp=17 B/min, Comment=nsr 11:31 AM Catheter removed [place] 11:32 AM 5Fr AR1 catheter inserted over the wire [id number] c[place] 11:32 AM Mid/Distal Left Anterior Descending Coronary Artery and diagonal branches with 100% stenosis. If graft is supplying this area, 0 % stenosis c[place] 11:32 AM Recorded Pressure: Ao, HR=73, Condition=Condition 1 (Aorta) Ao 100/57/79 11:35 AM HR=71 bpm, XQEG=119/62 mmhg, Resp=19 B/min, Comment=nsr 11:35 AM Time: 11:20LOC: 4 = Oriented but drowsy [place] 11:35 AM Time: 11:20 Patient comfortable and pain free: Yes [place] 11:35 AM Catheter removed [place] 11:36 AM 6Fr HS Runway guide catheter was used to cannulate the PCI vessel successfully. reused? No c[place] 11:38 AM Recorded Pressure: Ao, HR=73, Condition=Condition 1 (Aorta) Ao 104/62/83 11:38 AM RCA angiography performed in multiple views. c[place] 11:40 AM HR=71 bpm, TPOS=166/70 mmhg, Resp=37 B/min, Comment=nsr 11:40 AM Catheter removed [place] 11:40 AM 6Fr IM Runway guide catheter was used to cannulate the PCI vessel successfully. reused? No c[place] 11:42 AM Recorded Pressure: Ao, HR=70, Condition=Condition 1 (Aorta) Ao 108/64/85 11:43 AM re-inserted marvel wire c[place] 11:45 AM HR=72 bpm, VSGH=069/63 mmhg, Resp=17 B/min, Comment=nsr 11:47 AM Recorded Pressure: LV, HR=72, Condition=Condition 1 (Left Ventricle) LV 101/12/32 11:48 AM catheter postioned to LV c[place] 11:48 AM Catheter crossed the aortic valve and was selectively placed in the left ventricle. Pressures recorded on pullback for left heart catheterization. c[place] 11:48 AM Bolus angiogram of left Ventricle complete: 10 ml/sec for a total of 20 mls ced[place] 11:49 AM Recorded Pressure: LV, Ao, HR=77, Condition=Condition 1 (Left Ventricle) LV 108/18/27, (Aorta) Ao 110/63/86 11:50 AM HR=82 bpm, QKLP=324/69 mmhg, Resp=18 B/min, Comment=nsr 11:50 AM Lesion found in Proximal RCA. Pre Stenosis: 90 Pre MATHEW Flow: c[place] 11:50 AM Right Coronary, Right Posterior Descending Arteries with Right Posterolateral and Acute Marginal branches with 90 % stenosis. If graft is supplying this area, 0 % stenosis ced[place] 11:50 AM Time: 11:35 Patient comfortable and pain free: Yes c[place] 11:50 AM Time: 11:35LOC: 4 = Oriented but drowsy c[place] 11:52 AM Catheter removed [place] 11:53 AM 6Fr 3DRC Cordis guide catheter was used to cannulate the PCI vessel successfully. reused? No c[place] 11:55 AM At 11:55 the ACT was 400 seconds. ced[place] 11:55 AM HR=74 bpm, YBKA=556/63 mmhg, Resp=13 B/min, Comment=nsr 11:56 AM Guide catheter removed intact. [place] 11:57 AM Guide wire removed intact. c[place] 11:58 AM Procedure completed at 11:58 08/15/2018 [place] 11:58 AM Did you address MATHEW flow and Dominance? Yes c[place] 11:58 AM Coronary Dominance: right c[place] 11:58 AM Sign out completed: Radiation Dose 1591 mGy, 02075 cGy/cm2 Fluoro Time: 16.8 Isovue 370 - 200ml contrast 219 ml given by Camacho Gates MD, [facility]. Complications: None. 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 Cardiac Rehab Consult needed: YesConfirmed administered medications: Yes [place] 11:58 AM Isovue 370 - 200ml,1 Bottle(s) used. c[place] 11:59 AM Arterial sheath pulled, Vasc Band closure device used and was Successful S/N. ced[place] 11:59 AM 13 ml air in Vasc Band. cedwards 11:59 AM Estimated Blood Loss: less than 20cc c[place] 11:59 AM Post ECG NSR c[place] 11:59 AM Post Blood Pressure 116/63 ced[place] 12:00 PM HR=65 bpm, IGUF=238/59 mmhg, Resp=11 B/min 12:01 PM Information taught Cardiac Cath, PCI, and Vasc Band c[place] 12:01 PM Education needs Procedure, Plan of Care, and Responsibilities of Patient in Care c[place] 12:01 PM Learning barriers :None c[place] 12:01 PM Education Methods Verbal [place] 12:01 PM Education evaluation Able to repeat information c[place] 12:02 PM Time: 12:02 Plavix 600 mg Orally Given by Desmond Acosta RN [place] 12:04 PM Site status No bleeding/hematoma - Rt Wrist as reported by Lawrence Weiss RT (R) at 12:04 [place] 12:04 PM Plavix, Effient or Brilinta given Yes c[place] 12:04 PM Family placed in consult room. c[place] 12:04 PM Complications: None ced[place] 12:09 PM Time: 11:50LOC: 4 = Oriented but drowsy c[place] 12:09 PM Time: 11:50 Patient comfortable and pain free: Yes c[place] 12:10 PM Patient out of room: 12:10 ced[place] 12:15 PM Report given to Elisa GARCIA Pt taken to ICU Room #6. 12:15 c[place] 12:21 PM Lesion found in Mid RCA. Pre Stenosis: 40 Pre MATHEW Flow: ced[place] 12:21 PM Lesion found in Distal RCA. Pre Stenosis: 40 Pre MATHEW Flow: ced[place] 12:25 PM Time: 12:09 Patient comfortable and pain free: Yes c[place] 12:25 PM Time: 12:09LOC: 4 = Oriented but drowsy c[place] Complications Complication None None Hemodynamics Pressures Site Systolic/A Wave Diastolic/V Wave Mean AO 102 65 84 AO 94 56 74 AO 98 63 79 AO 101 59 78 AO 100 57 79 AO 104 62 83 AO 108 64 85 LV 101 12 32 LV 108 18 27 AO 110 63 86 Post Procedure Information Blood Pressure: 116/63 mmHg Rhythm: NSR Post procedural instructions were given Closure Device Time Device Success/Fail Mechanical Compression Successful Site Checks Time Location Status Staff Sheath In? Note 12:04 PM Rt Wrist No bleeding/hematoma Lawrence Weiss RT (R) Pulses Time Site Pre-Procedure Post-Procedure Note Bilateral radial 2+ 2+ Bilateral DP 2+ 2+ Updated by Desmond Acosta RN on 08/15/2018 12:27:41 PM electronically signed on 08/15/2018 12:36:54 PM with status of Final
[2018-08-15] MEDS ORDERED: Ondansetron 4 MG/2 ML VIAL IVP PRN (12:51)
--- NOTE | 2018-08-15 12:56 | Pre-Sedation Evaluation ---
Pre-sedation evaluation - Pre-sedation checklist Date of procedure: 08/15/18 Procedure: [facility] Recent Vitals: Last Vital Signs Temp 97.5 F L 08/15/18 10:26 Pulse 65 08/15/18 10:53 Resp 20 08/15/18 10:53 BP 120/77 08/15/18 10:54 Pulse Ox 97 08/15/18 10:53 H&P (including ROS) documented in medical record: Yes Previous reaction to sedatives/anesthetics: No Dietary Status: unknown Airway Assessment: Patient can open mouth completely, TMJ function normal ASA Classification *see protocol: CLASS IV-Severe systemic disease/constant threat to pt's life, [id number] to any of the above to indicate emergent Plan of Care: Pt appropriate candidate for procedure/moderate/conscious sedation, Risks/benefits of procedure/sedation discussed w/ patient/family Cardiac Registry (Cardio Only) - Functional Capacity Functional Capacity: Unknown - Clincal Frailty Scale Clinical Frailty Scale: Managing Well
--- NOTE | 2018-08-15 12:59 | Cardiology History & Physical ---
Date of Encounter: 08/15/18 Time of Encounter: 13:00 Assessment and Plan (1) STEMI (ST elevation myocardial infarction) Current Visit: Yes Status: Acute Ongoing symptoms with anterior STEMI. A/R/B of LHC discussed and he is agreeable with emergent cath. Aspirin, heparin given. EF assessment will be done w cardiac rehab. High intensity statin. Total critical care time: 1.5 hours. The assessment and plan as outlined above was discussed with the patient and/or family members who expressed understanding and agreement. All questions were answered. Qualifiers: Involved coronary artery: LAD coronary artery Qualified Code(s): I21.02 - ST elevation (STEMI) myocardial infarction involving left anterior descending coronary artery (2) Deep vein thrombosis of lower extremity Current Visit: No Status: Acute History of prostate ca in remission. Calf DVT. DC coumadin given need for DAPT. The assessment and plan as outlined above was discussed with the patient and/or family members who expressed understanding and agreement. All questions were answered. Qualifiers: Affected thrombotic vein of extremity: tibial Laterality: right Qualified Code(s): I82.441 - Acute embolism and thrombosis of right tibial vein (3) Hypertension Current Visit: No Status: Acute Metoprolol. The assessment and plan as outlined above was discussed with the patient and/or family members who expressed understanding and agreement. All questions were answered. Qualifiers: Hypertension type: essential hypertension Qualified Code(s): I10 - Essential (primary) hypertension History of Present Illness Chief complaint: chest pain / anterior stemi HPI: Mr. Pratt is a 83 year old male with history of prostate cancer in remission since 2005, DVT 03/2018 on coumadin and no previous cardiac history presents with chest discomfort approximately 630, EMS called he declined going to ER then had 10/10 recurrence, called EMS again and given aspirin/ntg with minimal improvement in symptoms. He denies active bleeding. Past Med Surg Social Fam HX - Past Medical History Medical history: DVT, GERD, hypertension Psychiatric history: no psych history - Past Surgical History Surgical History: herniorrhaphy - Social History Smoking Status: Former smoker Smokeless Tobacco Status: No Alcohol use: rarely Drug use: none Medications and Allergies Finasteride [Proscar] 5 mg PO DAILY 04/14/18 [History] Metoprolol [Lopressor] 50 mg PO BID 04/14/18 [History] Terazosin HCl 10 mg PO DAILY 04/14/18 [History] raNITIdine HCl [Zantac] 150 mg PO BID 04/14/18 [History] Warfarin Sodium 3 mg PO MO 08/15/18 [History] Warfarin [Coumadin] 6 mg PO [id number] 08/15/18 [History] Allergy/AdvReac Type Severity Reaction Status Date / Time No Known Allergies Allergy Verified 04/14/18 21:33 All Systems Review: The remainder of the systems were reviewed and are negative - Constitutional Constitutional: no chills, no fever(s) - EENT Eyes: no blurred vision, no loss of vision Nose, mouth and throat: no dysphagia, no odynophagia - Cardiovascular Cardiovascular: chest pain at rest, chest pain with exertion - Respiratory Respiratory: no hemoptysis, no wheezing - Gastrointestinal Gastrointestinal: no hematemesis, no hematochezia - Genitourinary Genitourinary: no dysuria, no hematuria - Musculoskeletal Musculoskeletal: no arthralgias, no myalgias - Integumentary Integumentary: no erythema, no unusual bruising - Neurological Neurological: no syncope, no tingling - Psychiatric Psychiatric: no hallucinations, no panic attacks - Hematological/Lymphatic Hematologic/Lymphatic: no easy bleeding, no easy bruising Physical Examination Vital Signs, Last 4 Hours Temp Pulse Resp BP Pulse Ox 08/15/18 10:54 120/77 08/15/18 10:53 65 20 94/63 97 08/15/18 10:48 74/51 93 08/15/18 10:46 73 20 71/56 93 08/15/18 10:40 68 20 123/82 94 08/15/18 10:35 95 08/15/18 10:26 97.5 F L 83 12 141/91 96 General: Conversant HEENT: Atraumatic Neck: No JVD Cardiac: Reg Rate and Rhythm Lungs: Normal Breath Sounds Neuro: Alert and responsive Abdomen: Soft Skin: No rashes noted on visualized skin Musculoskeletal: No Chest Wall Tenderness Extremities: No Edema Results 08/15/18 10:27 08/15/18 10:27 Lab Results 08/15/18 08/15/18 08/15/18 10:27 10:27 10:27 WBC 8.2 Hgb 14.0 Hct 41.2 Plt Count 153 INR 2.3 APTT 39.0 H Sodium 134 L Potassium 4.1 Chloride 102 Carbon Dioxide 23 BUN 12 Creatinine 0.84 Glucose 196 H Calcium 9.6 Magnesium 1.8 Troponin I 0.49 H* - EKG Interpretation EKG results cardiology: personally reviewed (anterior current of injury)
[2018-08-15] MEDS: Famotidine 20 MG TABLET PO SCH (16:09)
[2018-08-16] MEDS: *HR* Enoxaparin 30 MG/0.3 ML SYRINGE SQ SCH (06:43)
[2018-08-16] MEDS: Famotidine 20 MG TABLET PO SCH ×2 (08:35→17:35)
[2018-08-16] MEDS: Finasteride 5 MG TABLET PO SCH (08:35)
[2018-08-16] MEDS: Aspirin 81 MG TAB.CHEW PO SCH (08:35)
[2018-08-16] MEDS: Isosorbide MONOnitrate (24 HR) 30 MG TAB.ER.24H PO SCH (08:35)
--- NOTE | 2018-08-16 08:36 | Cardiology Progress Note ---
Date of Encounter: 08/16/18 Time of Encounter: 08:35 Assessment and Plan (1) STEMI (ST elevation myocardial infarction) Current Visit: Yes Status: Acute Per Cardiology: Presented with STEMI with troponin of 0.49 with left heart catheterization status post PTCA/drug-eluting stent to proximal LAD 70% and mid LAD 100% lesions with EF 45%. Has mid circumflex 30%, proximal RCA 90%, mid RCA 40%, and distal RCA 40-50% lesions with recommend staged PCI of proximal RCA. Echo pending. On aspirin, Plavix, statin, beta raman, and long-acting nitrate. Chest pain- free. We will continue to monitor telemetry. Planned for staged PCI tomorrow. Patient verbalized understanding and agree to plan. All questions answered. Qualifiers: Involved coronary artery: LAD coronary artery Qualified Code(s): I21.02 - ST elevation (STEMI) myocardial infarction involving left anterior descending coronary artery (2) NSVT (nonsustained ventricular tachycardia) Current Visit: Yes Status: Acute Per Cardiology: EF 45% on catheterization, echo pending. Few episodes of nonsustained VT on telemetry with longest being 15 beats. Potassium 4.1 magnesium 1.8, will give magnesium rider. Discussion w patient/family: The assessment and plan as outlined above was discussed with the patient and/or family members who expressed understanding and agreement. All questions were answered. Thank you for involving us in the care of your patient. Please call with any questions. Subjective Principal diagnosis: STEMI Interval history: Patient denies any concerns or complaints. Denies any chest pain, shortness of breath, palpitations. Denies any concerns with right wrist site. Objective Vital Signs, Last 4 Hours Temp Pulse Resp BP Pulse Ox 08/16/18 08:02 97.5 F L 08/16/18 07:00 62 19 128/73 95 08/16/18 06:00 63 18 111/62 989 08/16/18 05:00 65 18 121/70 98 General: Conversant, No Apparent Distress HEENT: Atraumatic, Normocephaly, Mucus Membranes Moist Neck: No JVD, Normal carotid pulses Cardiac: Reg Rate and Rhythm, Normal S1 and S2, No Murmur Lungs: Normal Breath Sounds, No Wheeze, Rales, Rhonchi Neuro: Alert and responsive, No focal deficits noted Abdomen: Soft, Non-Tender Skin: No rashes noted on visualized skin, Other (Right wrist site trying intact, no hematoma, no ecchymosis, no bleeding, radial pulses 2+ palpable) Musculoskeletal: No Chest Wall Tenderness Extremities: No Clubbing, No Cyanosis, No Edema, Normal Pulses Results 08/15/18 10:27 08/15/18 10:27 Lab Results Laboratory Tests 08/15/18 08/15/18 08/15/18 10: 10: 10:27 Hgb 14.0 Hct 41.2 INR 2.3 Potassium 4.1 Creatinine 0.84 Est GFR (Non-Af Amer) > 60 Magnesium 1.8 Troponin I 0.49 H* ITS Impressions Chest X-Ray 08/15/18 10: IMPRESSION: No acute abnormality. D/ / 08/15/2018 12:39:44 Rafat Sevilla MD / allyyer Interpreting Provider: Rafat Sevilla MD Active Medications Acetaminophen (Tylenol) 500 mg PO Q6HR PRN PRN Reason: Mild Pain Stop: 02/14/19 12:40 Aspirin (Aspirin) 81 mg PO DAILY [facility] Stop: 02/15/19 09:01 Last Admin: 08/16/18 08:35 Dose: 81 mg Clopidogrel Bisulfate (Plavix) 75 mg PO DAILY [facility] Stop: 02/15/19 09:01 Last Admin: 08/16/18 08:35 Dose: 75 mg Diphenhydramine HCl (Benadryl) 25 mg PO HS PRN PRN Reason: Insomnia Stop: 02/14/19 12:52 Enoxaparin Sodium (Lovenox) 30 mg SQ 0600 [facility]; Protocol Stop: 02/15/19 06:01 Last Admin: 08/16/18 06:43 Dose: 30 mg Famotidine (Pepcid) 20 mg PO BIDAC [facility] Stop: 02/14/19 16:31 Last Admin: 08/16/18 08:35 Dose: 20 mg Finasteride (Proscar) 5 mg PO DAILY [facility]; Protocol Stop: 02/15/19 09:01 Last Admin: 08/16/18 08:35 Dose: 5 mg Magnesium Sulfate 2 gm/ Sodium (Chloride) 104 mls @ 104 mls/hr IVPB ONCE ONE Stop: 08/16/18 09:36 Isosorbide Mononitrate (Imdur) 30 mg PO DAILY [facility] Stop: 02/15/19 09:01 Last Admin: 08/16/18 08:35 Dose: 30 mg Metoprolol Tartrate (Lopressor) 50 mg PO BID [facility] Stop: 02/14/19 21:01 Last Admin: 08/16/18 08:35 Dose: 50 mg Nitroglycerin (Nitroglycerin) 0.4 mg SL Q5MIN PRN PRN Reason: Pain Stop: 02/14/19 10:28 Last Admin: 08/15/18 10:39 Dose: 0.4 mg Ondansetron HCl (Zofran) 4 mg IVP Q6HR PRN; Protocol PRN Reason: Nausea And Vomiting Stop: 02/14/19 12:52 Rosuvastatin Calcium (Crestor) 40 mg PO [facility] Stop: 02/14/19 21:01 Last Admin: 08/15/18 20:55 Dose: 40 mg Terazosin HCl (Hytrin) 10 mg PO [facility] Stop: 02/15/19 21:01 - Imaging and Cardiology Echo: pending Cardiac cath: report reviewed - EKG Interpretation EKG results cardiology: other (Telemetry reviewed with average heart rate past 12 hours 67, few episodes of nonsustained VT with longest being 15 beats) Consult Discharge Plan - Plan Referrals: NONE,PCP [Primary Care Provider] -
[2018-08-17 03:35] LABS: Basophils % 0.2 %; Eosinophils # 0.1 K/mcL (0.0-0.6); Eosinophils % 1.3 %; Hemoglobin 13.3 g/dL (12.9-16.9); Immature Granulocytes % 0.4 % (0-4); Lymphocytes # 1.6 K/mcL (0.6-4.6); Mean Corpuscular HGB Conc 34.1 g/dL (31.6-35.5); Mean Corpuscular Hemoglobin 32.8 pg (28.0-33.3); Mean Corpuscular Volume 96.1 fL (83.0-100.0); Mean Platelet Volume 9.7 fL (9.4-12.4); Monocytes # 1.1 K/mcL (0.0-1.3); Monocytes % 12.4 %; Neutrophils # 5.7 K/mcL (1.6-8.9); Platelet Count 132 K/mcL (140-400); Red Blood Count 4.06 M/mcL (4.19-5.50); Red Cell Distribution Width 12.5 % (11.5-14.5); Segmented Neutrophils % 66.7 %
[2018-08-17 03:45] LABS: INR 1.9; Prothrombin Time 21.8 Seconds (9.4-12.1)
[2018-08-17 03:54] LABS: BUN/Creatinine Ratio 16 (6-26); Blood Urea Nitrogen 15 mg/dL (8-23); Calcium 8.9 mg/dL (8.6-10.3); Carbon Dioxide 26 mEq/L (23-29); Chloride 106 mEq/L (98-107); Glucose 160 mg/dL (70-105); Magnesium 2.1 mg/dL (1.6-2.6); Osmolality,Calculated 286 (280-300); Potassium 4.2 mEq/L (3.5-5.1); Sodium 136 mEq/L (136-145); eGFR For Non-African Americans > 60 (> 60)
[2018-08-17] MEDS: *HR* Enoxaparin 30 MG/0.3 ML SYRINGE SQ SCH (06:07)
[2018-08-17] MEDS: Famotidine 20 MG TABLET PO SCH ×2 (08:14→15:45)
[2018-08-17] MEDS: Isosorbide MONOnitrate (24 HR) 30 MG TAB.ER.24H PO SCH (08:14)
[2018-08-17] MEDS: Aspirin 81 MG TAB.CHEW PO SCH (08:14)
[2018-08-17] MEDS: Finasteride 5 MG TABLET PO SCH (08:14)
--- NOTE | 2018-08-17 08:30 | Event Note ---
Date of Encounter: 08/17/18 Time of Encounter: 08:30 - Cardiology Event Note Laboratory Tests 08/15/18 08/17/18 08/17/18 10: 03:23 03:23 Hgb Hct INR 1.9 Creatinine 0.91 Est GFR (Non-Af Amer) > 60 Troponin I 0.49 H* 08/17/18 08/17/18 03:23 03:23 Hgb 13.3 Hct 39.0 INR Creatinine Est GFR (Non-Af Amer) Troponin I 21.39 H* For planned staged PCI of RCA today. Telemetry reviewed currently sinus rhythm in the 70s with few episodes of PVCs and longest nonsustained VT 3 beats today. Chest pain-free. Plan for PCI today. Discussed and reviewed with family and patient. All questions answered. They verbalized understanding and agree to plan. Impressions Echocardiogram 08/16/18 07:00 Impressions: Technically adequate exam. LVEF 41-45%. Basal sigmoid septum. Mild left ventricular diastolic dysfunction. Normal right ventricular structure and function. Mild aortic regurgitation.
[2018-08-17 13:07] LABS: INR 1.6; Prothrombin Time 18.3 Seconds (9.4-12.1)
[2018-08-17] MEDS ORDERED: 0.9 % Sodium Chloride 1,000 ML ONE ×2 (14:34→14:46)
[2018-08-17] MEDS ORDERED: Heparin 1,000 UNITS/500 mL 500 ML ONE (14:34)
[2018-08-17] MEDS ORDERED: *HR* Heparin 10,000 UNIT/10 ML VIAL ONE (14:34)
[2018-08-17] MEDS ORDERED: Nitroglycerin 1,000 MCG/10 ML VIAL IV ONE (14:35)
[2018-08-17] MEDS ORDERED: ISOVUE-370 200 ML INFUS..BTL ONE (14:35)
[2018-08-17] MEDS ORDERED: *HR* FentaNYL (PF) 100 MCG/2 ML VIAL ONE (14:54)
[2018-08-17] MEDS ORDERED: *HR* Midazolam HCl 2 MG/2 ML VIAL ONE (14:54)
[2018-08-17] MEDS ORDERED: Tirofiban 12.5 MG/250ML 12.5 MG/250 ML BAG ONE (15:42)
--- NOTE | 2018-08-17 15:50 | Invasive Diagnostic Lab Proc ---
Name: Giuseppe Pratt Date of Study: 08/17/2018 Date: 1935 Ht: 74.0in Medical Record#: [id number] Age: 83 Wt: 209.44lb Gender: Male BSA: 2.22 Order #: [id number] BMI: 26.88 Physicians Procedure Physician: Dang Johnson MD Referring MD: Referring MD: Staff Name Position Time In Myrtle Siegel RN Rover Tender 02:38 PM Teetee Weiss RT (R) Scrub 02:38 PM Lawrence Weiss RT (R) Monitor 02:38 PM Gifty May RN Rover Tender 02:38 PM Indications Indication Non-Stemi Procedures Performed Procedure PRQ CARD CRUZITO STENT W/ANGIO 1 VSL Pre-Procedure Checklist Informed consent is complete signed and on chart. H&P is on chart. ID band is on and ID verified with patient. Patient NPO for procedure The procedure was described for the patient and questions were answered. Blood Pressure: 130/82 ECG is on chart. Plan of Care Patient will tolerate the procedure without complications. Adequate level of comfort will be maintained. Hemodynamics will remain stable Patient will recover from procedure without complications. Respiratory function will be maintained. Cardiac rhythm will remain stable. Patient temperature will be maintained. Patient and/or family have verbalized understanding of the procedure. Patient Education Chief Complaint/Reason for Test: Cardiac Cath Developmental Category: Geriatric (65+ years) Developmentally Appropriate for Age: Yes Learning Barriers: None Education Needs: Procedure Education Method: Verbal Information Taught: Cardiac Cath Educational Evaluation: Able to repeat information Intravenous Access Time IV Size Location DC'd Fluid/Drip Rate Units RN 02:37 PM 18g 1 10/23" Patent On Arrival Lt Wrist 0.9NaCl 25 ml/hr Myrtle Siegel RN Allergies No Known Allergies Vital Signs Time BP (mmHg) HR (bpm) O2 Sat. RR (bpm) LOC 02:46 PM 130 / 82 99 97 % 16 5 = Fully awake and oriented or at pre-proc level 02:47 PM / % 4 = Oriented but drowsy 03:02 PM / % 4 = Oriented but drowsy 03:17 PM / % 4 = Oriented but drowsy 02:52 PM 130 / 82 77 96 % 4 02:57 PM 121 / 83 46 98 % 19 03:02 PM 93 / 69 56 98 % 10 03:07 PM 103 / 67 72 98 % 8 03:12 PM 114 / 67 52 97 % 14 03:17 PM 101 / 57 66 97 % 15 03:22 PM 113 / 63 66 94 % 9 03:27 PM 96 / 56 68 95 % 12 03:32 PM 92 / 55 70 95 % 12 Procedural Medications Time Medication Dose Units Method Given By 03:00 PM Versed 1 mg Intravenous Myrtle Siegel RN 03:00 PM Fentanyl 50 mcg Intravenous Myrtle Siegel RN 03:10 PM Lidocaine 2% 10 ml Subcutaneous Dang Johnson MD 03:20 PM Heparin 4000 units Intravenous Myrtle Siegel RN 03:21 PM Aggrastat Bolus: 50 ml Intravenous Myrtle Siegel RN 03:21 PM Aggrastat 12.5mg/250ml 18 ml Intravenous Myrtle Siegel RN 03:37 PM Plavix 75 mg Orally Myrtle Siegel RN Diana Score Preprocedure Postprocedure Activity 2- Moves 4 extremities sustained head lift Activity 2- Moves 4 extremities sustained head lift Circulation 2- SBP +/= 20 points of pre-anesthetic level Circulation 2- SBP +/= 20 points of pre-anesthetic level Consciousness 2- Awake and alert oriented x 3 Consciousness 2- Awake and alert oriented x 3 O2 Saturation 2- Able to maintain O2 satruation of 92% on room air O2 Saturation 2- Able to maintain O2 satruation of 92% on room air Respiratory 2- Able to deep breathe and cough well Respiratory 2- Able to deep breathe and cough well Total Score 10 Total Score 10 Contrast Agent: Isovue Diagnostic Contrast: 33 ml Total Contrast: 33 ml Fluoro Dose: 4323 mGy Activated Clotting Time Time Seconds to Clot 03:23 PM 255 03:33 PM 259 Procedure Log Time Note Enter By 02:37 PM Patient charges- Angio tray pack, Navilyst 3mm J, Pulse Oximetry and ACIST tubing and transducer [email or web address] 02:38 PM Myrtle Siegel RN Position: Rover Tender Time in: 14:38 [email or web address] 02:38 PM Teetee Weiss RT (R) Position: Scrub Time in: 14:38 [email or web address] 02:38 PM Lawrence Weiss RT (R) Position: Monitor Time in: 14:38 [email or web address] 02:38 PM Gifty May RN Position: Rover Tender Time in: 14:38 [email or web address] 02:44 PM Inflation device was opened. [email or web address] 02:46 PM Pt arrived to civil laboratory technician 2 at 14:46 [email or web address] 02:46 PM Case Delayed No :47 PM Time: 14:46 Patient comfortable and pain free: Yes :47 PM Time: 14:47LOC: 5 = Fully awake and oriented or at pre-proc level [email or web address] 02:48 PM Physician arrived 14:47 [email or web address] 02:48 PM Meet and greet completed 02:48 PM Sign in performed according to hospital policy. Informed consent was obtained. 02:48 PM CathStat 02:48 PM Procedure start 14:48 [email or web address] 02:49 PM PCI lesion in Proximal RCA. Pre Stenosis: 90 Pre MATHEW Flow: 02:51 PM Hair removed from procedure site in procedure lab using clippers. Bilateral groin prepped with Chloraprep by Teetee Weiss), then patient was draped. Skin intact. 02:51 PM Vitals capture started with the following parameters, Patient=Adult, Interval=5 min, Initial Nowxjgvd=153 mmHg, Deflation Rate=5 mmHg, Cuff placed on Right Arm 02:52 PM HR=77 bpm, BCWX=781/82 mmhg, SpO2=96.0 %, Resp=4 B/min 02:54 PM Recorded ECG: HR=76 Condition=Condition 1 02:57 PM HR=46 bpm, LIRD=194/83 mmhg, SpO2=98.0 %, Resp=19 B/min 03:00 PM Time: 15:00 Versed 1 mg Intravenous Given by Myrtle Siegel RN 03:00 PM Time: 15:00 Fentanyl 50 mcg Intravenous Given by Myrtle Siegel RN 03:02 PM Time: 14:47 Patient comfortable and pain free: Yes 03:02 PM HR=56 bpm, NIBP=93/69 mmhg, SpO2=98.0 %, Resp=10 B/min, EtCO2=27 mmHg 03:02 PM Time: 14:47LOC: 4 = Oriented but drowsy [email or web address] 03:05 PM Pressure channel 1 zero failed. 03:05 PM Pressure channel 1 zeroed. 03:07 PM HR=72 bpm, TLBR=875/67 mmhg, SpO2=98.0 %, Resp=8 B/min 03:10 PM Time out was performed according to hospital policy. Conscious sedation and anesthesia was achieved (see medication log with in this report above) bw 03:10 PM Time: 15:10 10 ml Lidocaine 2% to right groin Subcutaneous Given by Dang Johnson MD 03:10 PM Micro-Introducer Kit utilized for sheath placement bw 03:12 PM hand injected rt femoral angiogram bw 03:12 PM HR=52 bpm, VNZT=654/67 mmhg, SpO2=97.0 %, Resp=14 B/min 03:12 PM Access obtained by percutaneous puncture. 6Fr 10cm Terumo Ackley sheath placed in right Femoral artery. [id number] 03:12 PM 0.035 145cm Navilyst 3mmJ wire [id number] bw 03:13 PM 6Fr JR 4 [place] Bright-Tip guide catheter was used to cannulate the PCI vessel successfully. reused? No 03:14 PM j wire removed 03:14 PM 0.035 145cm Glidewire wire [id number] bw 03:17 PM Time: 15:02 Patient comfortable and pain free: Yes 03:17 PM HR=66 bpm, RFSQ=009/57 mmhg, SpO2=97.0 %, Resp=15 B/min 03:17 PM Time: 15:02LOC: 4 = Oriented but drowsy [email or web address] 03:17 PM .014 [employer] [place] cm guide wire across target lesion- successful. reused? No 03:17 PM Recorded Pressure: Ao, HR=78, Condition=Condition 1 (Aorta) Ao 84/53/67 03:18 PM 2.0 mm x 12 mm Emerge Monorail balloon across target lesion- successful. reused? No 03:19 PM drawing ACT 03:20 PM Time: 15:20 Heparin 4000 units Intravenous Given by Myrtle Siegel RN 03:21 PM Time: 15:21 Aggrastat Bolus: 50 ml Intravenous Given by Myrtle Siegel RN Muñoz pump ilson 03:21 PM Time: 15:21 Aggrastat 12.5mg/250ml 18 ml Intravenous Given by Myrtle Siegel RN Muñoz pump [email or web address] 03:22 PM HR=66 bpm, QQFA=344/63 mmhg, SpO2=94.0 %, Resp=9 B/min 03:22 PM Balloon inflated @ 6 bishop for 10 seconds [email or web address] 03:23 PM Balloon inflated @ 8 bishop for 11 seconds [email or web address] 03:23 PM At 15:23 the ACT was 255 seconds. [email or web address] 03:24 PM Balloon catheter removed intact. [email or web address] 03:26 PM 3.5mm x 12mm Cordis EluNIR drug-eluting stent across target lesion- successful Lot #[id number] [email or web address] 03:26 PM aggrastat off [email or web address] 03:27 PM HR=68 bpm, NIBP=96/56 mmhg, SpO2=95.0 %, Resp=12 B/min 03:28 PM Stent deployed @ 9 bishop for 10 seconds [email or web address] 03:28 PM Stent balloon reinflated @ 10 bishop for 10 seconds [email or web address] 03:28 PM Stent balloon reinflated @ 14 bishop for 6 seconds [email or web address] 03:30 PM Stent delivery system removed intact. [email or web address] 03:30 PM Guide wire removed intact. [email or web address] 03:30 PM Guide catheter removed intact. [email or web address] 03:32 PM HR=70 bpm, NIBP=92/55 mmhg, SpO2=95.0 %, Resp=12 B/min 03:32 PM Time: 15:17LOC: 4 = Oriented but drowsy [email or web address] 03:32 PM Time: 15:17 Patient comfortable and pain free: Yes 03:33 PM Arterial sheath pulled, Angio-seal closure device used and was Successful [id number] S/N. [email or web address] 03:33 PM Procedure completed at 15:33 08/17/2018 [email or web address] 03:33 PM Sign out completed: Radiation Dose 751.36 mGy, 4322.95 cGy/cm2 Fluoro Time: 5.4 Isovue 370 - 200ml contrast 33 ml given by Dang Johnson MD. Complications: None. 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 Cardiac Rehab Consult needed: YesConfirmed administered medications: Yes [email or web address] 03:33 PM Isovue 370 - 200ml,1 Bottle(s) used. [email or web address] 03:33 PM Estimated Blood Loss: less than 20cc [email or web address] 03:33 PM At 15:33 the ACT was 259 seconds. [email or web address] 03:34 PM Post Blood Pressure 92/55 [email or web address] 03:34 PM Information taught Cardiac Cath and PCI [email or web address] 03:34 PM Education needs Procedure, Plan of Care, and Disease Process [email or web address] 03:34 PM Learning barriers :Sedated [email or web address] 03:34 PM Education Methods Verbal [email or web address] 03:34 PM Education evaluation Needs further instruction [email or web address] 03:34 PM Delay to floor No [email or web address] 03:34 PM Complications: None [email or web address] 03:36 PM Site status No bleeding/hematoma - Rt Groin as reported by Teetee Weiss RT (R) at 15:36 [email or web address] 03:36 PM Opsite applied [email or web address] 03:36 PM Family placed in consult room. [email or web address] 03:37 PM Time: 15:37 Plavix 75 mg Orally Given by Myrtle Siegel RN [email or web address] 03:40 PM Report given to RN Pt taken to ICU Room #6. 15:38 [email or web address] 03:40 PM Lesion found in Distal RCA. Pre Stenosis: 60 Pre MATHEW Flow: [email or web address] 03:42 PM Report given to cortes RN Pt taken to ICU Room #6. 15:42 [email or web address] 03:43 PM Patient out of room: 15:43 [email or web address] Complications Complication None None Hemodynamics Pressures Site Systolic/A Wave Diastolic/V Wave Mean AO 84 53 67 Post Procedure Information Blood Pressure: 92/55 mmHg Post procedural instructions were given Closure Device Time Device Success/Fail 08/17/2018 3:31:00 PM Angio-Seal VIP Successful Site Checks Time Location Status Staff Sheath In? Note 03:36 PM Rt Groin No bleeding/hematoma Teetee Weiss RT (R) Pulses Time Site Pre-Procedure Post-Procedure Note 08/17/2018 2:37:00 PM Bilateral DP 2+ 08/17/2018 2:37:00 PM Bilateral PT 1+ 08/17/2018 2:37:00 PM Bilateral radial 2+ Updated by Lawrence Weiss RT (R) on 08/17/2018 3:44:28 PM RT Mejia electronically signed on 08/17/2018 3:44:52 PM with status of Final
[2018-08-18] MEDS: *HR* Enoxaparin 30 MG/0.3 ML SYRINGE SQ SCH (05:13)
[2018-08-18] MEDS: Isosorbide MONOnitrate (24 HR) 30 MG TAB.ER.24H PO SCH (07:29)
[2018-08-18] MEDS: Aspirin 81 MG TAB.CHEW PO SCH (07:29)
[2018-08-18] MEDS: Finasteride 5 MG TABLET PO SCH (07:29)
[2018-08-18] MEDS: Famotidine 20 MG TABLET PO SCH (07:29)
--- NOTE | 2018-08-18 11:10 | Discharge Summary ---
Orders not resulted at time of discharge: Pending orders 08/17/18 15:37 ECG 12 lead ECG [ECG] Routine 08/18/18 07:00 ECG 12 lead ECG [ECG] Routine Date of Encounter: 08/18/18 Time of Encounter: 11:00 - Discharge Diagnosis (1) STEMI (ST elevation myocardial infarction) Priority: Primary Status: Acute Comments: Presented with STEMI Qualifiers: Involved coronary artery: LAD coronary artery Qualified Code(s): I21.02 - ST elevation (STEMI) myocardial infarction involving left anterior descending coronary artery (2) NSVT (nonsustained ventricular tachycardia) Priority: Secondary Status: Resolved Comments: Few post IN episodes; resolved. - Hospital Course Hospital course: Mr. Pratt is a 83 year old male presented with STEMI with troponin of 21.39 with left heart catheterization status post PTCA/drug-eluting stent to proximal LAD 70% and mid LAD 100% lesions with EF 45%. Has mid circumflex 30%, proximal RCA 90%, mid RCA 40%, and distal RCA 40-50% lesions. Underwent staged PCI of proximal RCA 90% lesion 08/17/2018 with drug-eluting stent. Chest pain-free. Echo showed EF 41-45%. Had a few brief episodes of nonsustained VT with longest being 15 beats within first 24 hours with no further events noted. On aspirin, Plavix, statin, beta raman, nitroglycerin pills provided and ejection on how to utilize and when to call 911. Post IN and procedure care provided. All questions answered. Patient and family verbalized understanding and agreed with plan. - Time Spent with Patient Total time spent providing and/or coordinating discharge services: Less than 30 minutes - Discharge Medications Prescriptions: Nitroglycerin 0.4 mg SL Q5MIN PRN #30 tab.subl PRN Reason: Pain Clopidogrel [Plavix] 75 mg PO DAILY #30 tablet Rosuvastatin [Crestor] 40 mg PO HS #30 tablet Home Medications: Finasteride [Proscar] 5 mg PO DAILY 04/14/18 [History] Metoprolol [Lopressor] 50 mg PO BID 04/14/18 [History] Terazosin HCl 10 mg PO DAILY 04/14/18 [History] raNITIdine HCl [Zantac] 150 mg PO BID 04/14/18 [History] Aspirin 81 mg PO DAILY tab.chew 08/18/18 [Rx] Clopidogrel [Plavix] 75 mg PO DAILY #30 tablet 08/18/18 [Rx] Nitroglycerin 0.4 mg SL Q5MIN PRN #30 tab.subl 08/18/18 [Rx] Rosuvastatin [Crestor] 40 mg PO HS #30 tablet 08/18/18 [Rx] Allergies/Adverse Reactions: Allergy/AdvReac Type Severity Reaction Status Date / Time No Known Allergies Allergy Verified 04/14/18 21:33 Date of admission: 08/15/18 11:01 Primary care physician: PCP NONE Consults: 08/15/18 12:39 Consult to Cardiac Rehabilitation-Phase1 [CONS] Routine Comment: Reason for Consult: AMI Call Completed: Yes Consult to Nurse Navigator [CONS] Routine Comment: 08/17/18 15:37 Consult to Cardiac Rehabilitation-Phase1 [CONS] Routine Comment: Reason for Consult: AMI Call Completed: Yes Consult to Nurse Navigator [CONS] Routine Comment: 08/18/18 09:45 Consult to Physical Therapy [CONS] Stat Comment: Evaluate, develop and implement POC Reason for Consult: WEAK LEGGED DURING AMBULATION. GOING HOME THIS AFTERNOON NEEDS SEEN STAT Does patient have active BEDREST order?: No Is patient medically & hemodynamically stable?: Yes Discharging clinician: Emeterio Wolfe Anticipated date of discharge: 08/18/18 Physical Examination Vital Signs, Last 4 Hours Temp Pulse Resp BP Pulse Ox 08/18/18 10:00 84 18 108/66 93 08/18/18 09:00 60 20 101/64 94 08/18/18 08:00 71 18 124/81 93 08/18/18 07:30 97.5 F L 74 General: Conversant, No Apparent Distress HEENT: Atraumatic, Normocephaly, Mucus Membranes Moist Neck: No JVD, Normal carotid pulses Cardiac: Reg Rate and Rhythm, Normal S1 and S2, No Murmur Lungs: Normal Breath Sounds, No Wheeze, Rales, Rhonchi Neuro: Alert and responsive, No focal deficits noted Abdomen: Soft, Non-Tender Skin: No rashes noted on visualized skin, Other (Right groin site dry and intact, no hematoma, no bleeding, no ecchymosis, right PT and DP pulses 1+ palpable, right radial pulse remains 2+ palpable from previous procedure.) Musculoskeletal: No Chest Wall Tenderness Extremities: No Clubbing, No Cyanosis, No Edema, Normal Pulses - Patient Status Disposition: Home, Self-Care Condition: Fair Functional capacity at discharge: independent ambulation Overall status at discharge: patient is progressing back to baseline - Discharge Instructions Follow Up With: NONE,PCP [Primary Care Provider] - Additional Instructions: RISK FACTORS: STOP SMOKING: If you smoke, STOP. Smoking or tobacco use significantly increases your risk of heart disease because nicotine causes the arteries to narrow or constrict. It also causes fats to stick to the artery. Your chances of having a heart attack are greatly increased if you continue to smoke. For more information, call the education line for smoking cessation 8-388-RQWPZJE EAT A LOW FAT/CHOLESTEROL/SODIUM DIET: This diet may help reduce your chances of having a heart attack. LIFTING: With affected extremity: Avoid bending, pushing off and lifting more than 2 pounds for 24 hours The following 48 hours, avoid lifting anything more than 5 pounds Avoid strenuous activity or repetitive motions ACTIVITY: You may walk or climb stairs as tolerated You can resume sexual activity as tolerated In general, you are encouraged to engage in a minimum of 30 minutes or more of moderate intensity physical activity, such as brisk walking, daily or at least 3-4 times weekly BATHING Do not submerge the site into water (bath tub, hot tub, swimming pool, dishes) for 1 week. This can be a source for infection into the blood stream. You may shower after 24 hours SITE CARE: After 24 hours, you may remove the dressing and leave the site open to air. Keep the site clean and dry. Clean gently and pat dry. You can expect bruising and tenderness that gradually resolve within a week or two. Return to work as instructed per your physician Resume driving as instructed per physician Keep all scheduled follow up appointments Resume medications as instructed IMPORTANT: If prescribed a Platelet Aggregation Inhibitor such as, Plavix, Brilinta or Effient: Duration of therapy is minimum one year These medications are often used in combination with Aspirin in prevention of future heart attacks Never discontinue unless consult with your Wastewater Project Engineer STROKE (CVA) Risk factors for a stroke are: Age, cigarette smoking, diabetes, excessive alcohol consumption, family history, high blood pressure, overweight, physical inactivity, prior stroke, heart attack, diagnosis of carotid artery stenosis or other artery disease. Warning signs: Sudden numbness or weakness of the face, arm or leg; especially on one side of the body, sudden confusion, trouble speaking or understanding, sudden trouble seeing in one or both eyes, sudden trouble walking, dizziness, loss of balance or coordination, sudden severe headache with no cause. Call 911 or go to the Emergency Room. CONGESTIVE HEART FAILURE: If you have been diagnosed with Congestive Heart Failure (CHF) and your symptoms return, make an appointment with your physician Weigh yourself daily. Notify your physician if you have a weight gain of two or more pounds in one day or five or more pounds in one week. If you experience any difficulty breathing, please call 911 BLEEDING: Although the risk of bleeding is minimal, it can happen. If you have any bleeding from the site, apply firm pressure above the puncture site for 10-15 minutes. If the bleeding does not stop, continue manual pressure and call 911 Contact [facility] ( ) if: You develop a fever greater than 101 degrees Fahrenheit Your site becomes reddened or has any drainage You have an increase in pain or burning at the site or if a large knot forms at the site. If you experience chest pain, shortness of breath, dizziness, or extreme tiredness, stop the activity and rest. Please notify [facility] office if you experience any of these symptoms and they are not relieved by rest please call 911!RISK FACTORS: STOP SMOKING: If you smoke, STOP. Smoking or tobacco use significantly increases your risk of heart disease because nicotine causes the arteries to narrow or constrict. It also causes fats to stick to the artery. Your chances of having a heart attack are greatly increased if you continue to smoke. For more information, call the education line for smoking cessation 4-889-LIMCJHK EAT A LOW FAT/CHOLESTEROL/SODIUM DIET: This diet may help reduce your chances of having a heart attack. LIFTING: Avoid lifting anything more than 10 pounds for 5-7 days Prior to straining, laughing, sneezing and/or coughing, apply manual pressure directly over insertion site. ACTIVITY: You may walk or climb stairs as tolerated You can resume sexual activity as tolerated In general, you are encouraged to engage in a minimum of 30 minutes or more of moderate intensity physical activity, such as brisk walking, daily or at least 3-4 times weekly BATHING Do not submerge the site into water (bath tub, hot tub, swimming pool) for 1 week. This can be a source for infection into the blood stream. You may shower after 24 hours SITE CARE: After 24 hours, you may remove the dressing and leave the site open to air. Keep the site clean and dry. Clean gently and pat dry. You can expect bruising and tenderness that gradually resolve within a week or two. Return to work as instructed per your physician Resume driving as instructed per physician Keep all scheduled follow up appointments Resume medications as instructed IMPORTANT: If prescribed a Platelet Aggregation Inhibitor such as, Plavix, Brilinta or Effient: Duration of therapy is minimum one year These medications are often used in combination with Aspirin in prevention of future heart attacks Never discontinue unless consult with your Wastewater Project Engineer STROKE (CVA) Risk factors for a stroke are: Age, cigarette smoking, diabetes, excessive alcohol consumption, family history, high blood pressure, overweight, physical inactivity, prior stroke, heart attack, diagnosis of carotid artery stenosis or other artery disease. Warning signs: Sudden numbness or weakness of the face, arm or leg; especially on one side of the body, sudden confusion, trouble speaking or understanding, sudden trouble seeing in one or both eyes, sudden trouble walking, dizziness, loss of balance or coordination, sudden severe headache with no cause. Call 911 or go to the Emergency Room. CONGESTIVE HEART FAILURE: If you have been diagnosed with Congestive Heart Failure (CHF) and your symptoms return, make an appointment with your physician Weigh yourself daily. Notify your physician if you have a weight gain of two or more pounds in one day or five or more pounds in one week. If you experience any difficulty breathing, please call 911 BLEEDING: Although the risk of bleeding is minimal, it can happen. If you have any bleeding from the site, apply firm pressure above the puncture site for 10-15 minutes. If the bleeding does not stop, continue manual pressure and call 911 Contact your physician if: You develop a fever greater than 101 degrees Fahrenheit Your site becomes reddened or has any drainage You have an increase in pain or burning at the site or if a large knot forms at the site. If you experience chest pain, shortness of breath, dizziness, or extreme tiredness, stop the activity and rest. Please notify your physicians office if you experience any of these symptoms and they are not relieved by rest please call 911! - Diet and Activity Activity: as per physical therapy, return to work once cleared by your PCP/specialist Diet: low fat, low cholesterol, low salt diet
[2018-08-18 11:13] VITALS: BP 85/66
--- NOTE | 2018-08-21 10:12 | Electrocardiograph Report ---
[address] [place], [place] [address] Test Date: 2018-08-15 Pat Name: Giuseppe Pratt Department: [id number] Room: [facility] Gender: M Manager Decision Support: : 1935 Requested By: James Green Order Number: [id number] Reading MD: William Pryor Measurements Intervals [place] Rate: 66 P: 54 FL: 231 QRS: 44 QRSD: 92 T: 27 QT: 393 QTc: 412 Interpretive Statements Sinus rhythm PACs First degree AV block Anteroalteral lateral infarct, acute ACUTE STEMI Electronically Signed On 08-21-2018 10:10:43 EDT by William Pryor
--- NOTE | 2018-08-21 18:18 | Electrocardiograph Report ---
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
--- NOTE | 2018-08-21 18:43 | Electrocardiograph Report ---
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
--- NOTE | 2018-08-21 19:28 | Electrocardiograph Report ---
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
== END 2018-08-18 14:03 | disposition home or self-care (01) | DRG 247 ==
LOC: EMEROOARM 10:24 → ICNU 10:55 → EMEROOARM 10:59 → ICNU 11:01 → UNDODISIN 11:03
PROVIDERS: ADMIT Emergency Medicine; ATTEND Emergency Medicine